=== PATIENT | female | born 1980 | race Caucasian/White ===

== ENCOUNTER 2021-12-24 21:10 | Emergency (ER) | payer BC ==
[2021-12-24] MEDS ORDERED: Sodium Chloride 0.9% 10 ML Syringe FLUSH PRN (21:42)
[2021-12-24 22:28] LABS: ANION GAP 12.6 mmol/L (5-15); CHLORIDE,CL 105 mmol/L (98-107); SODIUM,NA 137 mmol/L (136-145)
[2021-12-24] MEDS ORDERED: Ketorolac 30 MG/ML SDV IVPUSH ONE (22:50)
[2021-12-24] MEDS ORDERED: Ketorolac 30 MG/ML SDV ONE (22:50)
== END 2021-12-24 23:05 | disposition home or self-care (01) ==
LOC: KA.ED 21:10
DX: R07.89 Other chest pain (principal); M25.512 Pain in left shoulder; M54.2 Cervicalgia; E87.6 Hypokalemia; D64.9 Anemia, unspecified
CPT/HCPCS: 36415; 71046; 73030-LT; 80053; 81003; 84484; 85025; 85379; 93010; 96374; 99284; 99285-25; J1885; J3490

== ENCOUNTER 2021-12-30 13:55 | Emergency (ER) | payer BC ==
[2021-12-30] MEDS ORDERED: Alum Hydrox/Mag Hydrox/Simeth 30 ML, Lidocaine 2% 15 ML PO ONE ×2 (14:28)
== END 2021-12-30 15:50 | disposition home or self-care (01) ==
LOC: KA.ED 13:55
DX: T18.198A Other foreign object in esophagus causing other injury, initial encounter (principal)
CPT/HCPCS: 70360; 99283; 99283-25; A9270-GY